=== PATIENT | female | born 1950 | race Caucasian/White ===

== ENCOUNTER 2025-02-11 07:33 | Emergency (ER) | payer MEDICARE ==
[~2025-02-11] VITALS: Ht 170.2 cm; Wt 85.7 kg
[2025-02-11 07:39] VITALS: TEMP 96.9
--- NOTE | 2025-02-11 08:27 | RADIOLOGY REPORT ---
EXAM: DI KNEE, COMP 4 VW MIN HISTORY: KNEE PAIN COMPARISON: None TECHNIQUE: 3 views of the right knee were performed. FINDINGS: No acute fracture is identified about the right knee. There are marginal osteophytes and moderate juan nt space narrowing of the lateral compartment. No lateral patellar tilt or subluxation on the sunrise view. Probable moderate joint effusion. IMPRESSION: 1. Degenerative changes of the right knee without evidence of acute fracture. 2. Probable moderate right knee effusion. If internal derangement is suspected, consider follow-up no ncontrast MRI of the right knee for evaluation of the ligaments and menisci.
--- NOTE | 2025-02-11 09:19 | Physician Documentation ---
History of Present Illness ~ Chief Complaint: Knee Pain Stated Complaint: KNEE PAIN Time Seen by MD: 08:44 HPI 74-year-old female presenting with atraumatic right knee pain She tells me that her pain started yesterday but significantly worsened this morning. She tells me it is located in the back of her knee. It is only painful when she moves it or tries to walk. No specific injury or change in activity. No fevers, redness or warmth to the knee. No history of similar pain. No history of knee surgery. No other acute concerns. She did not try any medications or other treatments for her knee. Medication Reconciliation Allergies: Coded Allergies: No Known Allergies (Unverified , 02/11/25) Review of Systems Constitutional: Denies: fever Musculoskeletal: Reports: joint pain, joint swelling Integumentary: Denies: rash Physical Exam Vital Signs: Temperature: 96.9, Source: Temporal, Heart Rate: 54, Respiratory Rate: 15, BP: 149/85, Pulse Oximetry: 95, Weight: 85.700 Physical Exam General: This is a pleasant and overall well-appearing older woman, friend at bedside HEENT: Atraumatic, oropharynx is moist Heart: Regular rate and rhythm, normal-appearing peripheral perfusion Lungs: normal work of breathing, normal oxygen saturation on room air Extremities: Warm and well-perfused Right lower extremity: The patient does have some mild generalized swelling to her right knee. No overlying erythema or warmth. No focal bony point tenderness on palpation of the bones of the knee. No pain with passive range of motion. However with active flexion and extension of the knee she does report some pain. The pain seems localized to the tendons of the medial hamstring. No rash at this region. No posterior calf or thigh tenderness. No edema to the lower leg or foot. Normal sensation to light touch in the right foot. Neuro: Alert and oriented, no focal deficits Psychiatric: Calm and cooperative with exam Progress Results/Orders Results/Orders Orders - JIN ESTRADA MD Knee, Complete (02/11/25 07:43) Completed Orders - JIN ESTRADA MD Knee, Complete (02/11/25 07:43) Ketorolac Trometh 30mg/Ml Vial (Toradol (02/11/25 09:20) Vital Signs 02/11/25 02/11/25 02/11/25 02/11/25 07:39 08:49 09:29 09:36 Temp 96.9 Pulse 55 54 54 Resp 16 15 15 15 B/P (MAP) 148/74 149/85 (106) 129/83 (98) Pulse Ox 99 95 96 EKG/XRAY/CT/US/VASC/MRI Bone/Soft Tissue X-Ray (Ext.) : Additional Comment X-ray knee: I personally interpreted the x-ray, and it shows no fracture or dislocation, possible small joint effusion Medical Decision Making Additional Comment Differential includes internal derangement, joint effusion, septic arthritis, DVT, muscle strain Assessment The patient presents with atraumatic knee pain. Per her history and exam I suspect a muscle strain. No evidence to suggest DVT. No evidence to suggest septic arthritis or other dangerous infection. X-ray does not show an acute abnormality such as a fracture or dislocation. She will be treated with a shot of Toradol, and discharged with home care instructions including anti-i nflammatories and topical treatments. Return precautions given. Departure Time of Disposition: 09:18 Disposition: 01 HOME / SELF CARE / HOMELESS Impression: Primary Impression: Knee pain Condition: Stable Discharge Instructions: Acute Knee Pain, Adult, Muscle Strain Referrals: NO PRIMARY CARE PROVIDER (PCP) Education Educated: Patient Educated regarding: diagnosis, treatment, need for follow up Signature Scribe Signature: na Attestation: JIN Acuña MD Feb 11, 2025 09:18
[2025-02-11] MEDS: ketorolac trometh 30MG/ML vial 30 MG/ML VIAL IM ONE (09:29)
[2025-02-11 09:36] VITALS: BP 129/83; PULSE 54; RESP 15; O2SAT 96
== END 2025-02-11 09:43 | disposition home or self-care (01) ==
LOC: ER 07:33
DX: M25.561 Pain in right knee (principal)
CPT/HCPCS: 73564; 96372; 99284; J1885